=== PATIENT | female | born 1990 ===

== ENCOUNTER 2018-02-20 09:13 | Emergency (ER) | payer BC ==
[2018-02-20 09:34] VITALS: BP 116/75
--- NOTE | 2018-02-20 09:51 | UC ---
Respiratory Complaint HPI - HPI Summary HPI Summary: This patient is a 28 year old F presenting to [facility] with a chief complaint of CP and cough since 3 weeks ago. The CC is described as starting out as a dry cough but then had productive cough with blood (on 02/17/18) and now has green sputum. Symptoms are worse at night. The patient rates the pain 7/10 in severity. Symptoms aggravated by nothing. Symptoms alleviated by nothing. Patient reports wheezing. Patient denies rhinorrhea and sore throat. Patient is a social smoker. PMHx of childhood asthma. - History of Current Complaint Chief Complaint: UCRespiratory Stated Complaint: COUGH,CONGSTED Time Seen by Provider: 02/20/18 09:37 Hx Obtained From: Patient Hx Last Menstrual Period: 02/18/18 Onset/Duration: Sudden Onset, Lasting Weeks - since about 3 weeks ago, Still Present Severity Initially: Moderate Severity Currently: Moderate Pain Intensity: 7 Pain Scale Used: 0-10 Numeric Character: Cough: Productive - had productive cough with blood (on 02/17/18) and now has green sputum Aggravating Factors: Nothing Alleviating Factors: Nothing Associated Signs And Symptoms: Positive: Wheezing - Patient reports wheezing. Patient denies rhinorrhea and sore throat. - Allergies/Home Medications Allergies/Adverse Reactions: Allergies Allergy/AdvReac Type Severity Reaction Status Date / Time No Known Allergies Allergy Verified 02/20/18 09:35 PMH/Surg Hx/FS Hx/Imm Hx Endocrine History: Other Other Endocrine History: denies DM Cardiovascular History: Hypertension - with , Other Other Cardiovascular History: . Respiratory History: Asthma - childhood, Bronchitis - Surgical History Surgical History: Yes Surgery Procedure, Year, and Place: TUBAL LIGATION AND CERVICAL CONE BIOPSY - Family History Known Family History: Positive: Other Family History: father - heart attack - Social History Alcohol Use: Daily Substance Use Type: None Smoking Status (MU): Current Some Day Smoker Review of Systems ENT: Other - denies sore throat and rhinorrhea Respiratory: Cough - productive cough with blood (on 02/17/18) and now has green sputum, Other - wheezing Cardiovascular: Chest Pain All Other Systems Reviewed And Are Negative: Yes Physical Exam - Summary Physical Exam Summary: General: well-appearing, no pain distress Skin: warm, color reflects adequate perfusion, dry Head: normal Eyes: EOMI, SLADE ENT: normal Neck: supple, nontender Respiratory: Breath sounds present. Minimal expiratory wheezes bilaterally in the lower lungs. Cardiovascular: RRR Abdomen: soft, nontender Bowel: present Musculoskeletal: normal, strength/ROM intact Neurological: sensory/motor intact, A&O x3 Psychological: affect/mood appropriate Triage Information Reviewed: Yes Vital Signs: Initial Vital Signs Temp 98 F 02/20/18 09:32 Pulse 70 02/20/18 09:32 Resp 16 02/20/18 09:32 BP 116/75 02/20/18 09:32 Pulse Ox 100 02/20/18 09:32 Vital Signs Reviewed: Yes Diagnostic Evaluation - Laboratory O2 Sat by Pulse Oximetry: 100 Respiratory Course/Dx - Course Course Of Treatment: PATIENT DECLINED CXR. - Differential Dx/Diagnosis Provider Diagnoses: BRONCHITIS WITH BRONCHOSPASM Discharge - Sign-Out/Discharge Documenting (check all that apply): Patient Departure - discharge All imaging exams completed and their final reports reviewed: No Studies - Discharge Plan Condition: Stable Disposition: HOME Prescriptions: Albuterol HFA INHALER* [Ventolin HFA Inhaler*] 2 puff INH Q4H PRN #1 mdi PRN Reason: Wheezing Azithromyxin CONRAD (NF) [Z-Conrad (Zithromax) 250 mg tabs #6] 2 tab PO .TODAY, THEN 1 DAILY #6 tab Patient Education Materials: Acute Bronchitis (ED), Bronchospasm (ED), Wheezing (ED) Forms: *Work Release Referrals: [facility] [Outside] Additional Instructions: FOLLOW UP WITH YOUR DOCTOR IF NOT COMPLETELY IMPROVED. GET RECHECKED FOR ANY WORSENING OF YOUR CONDITION; SHORTNESS OF BREATH, COUGHING UP BLOOD, PAIN OR QUESTIONS OR CONCERNS. - Billing Disposition and Condition Condition: STABLE Disposition: Home - Attestation Statements Document Initiated by Scribe: Yes Documenting Scribe: Syd Jordan Provider For Whom Manuel is Documenting (Include Credential): Saman Rodriguez MD Scribe Attestation: Syd Richmond scribed for Saman Rodriguez MD on 02/20/18 at 1142. Scribe Documentation Reviewed: Yes Provider Attestation: The documentation as recorded by the Syd nuñez accurately reflects the service I personally performed and the decisions made by me, Saman Rodriguez MD
== END 2018-02-20 09:55 | disposition home or self-care (01) ==
LOC: UCEAST 09:13
DX: J20.9 Acute bronchitis, unspecified (principal); Z72.0 Tobacco use
CPT/HCPCS: 99202; G0463